=== PATIENT | female | born 1975 | race Caucasian/White ===

== ENCOUNTER 2019-11-01 16:11 | Emergency (ER) | payer OTHER, SELFPAY ==
[2019-11-01 16:20] VITALS: BP 119/70; PULSE 112; RESP 16; TEMP 37.1; O2SAT 100
--- NOTE | 2019-11-01 16:37 | ED.URI ---
HPI - URI/Sore Throat General Chief Complaint: Upper Respiratory Infection Stated Complaint: fever/chills Time Seen by Provider: 11/01/19 16:37 Source: patient and RN notes reviewed Mode of arrival: ambulatory Limitations: no limitations History of Present Illness HPI Narrative: 44-year-old female presents with concern for fever, sore throat, body aches that started this morning at 10:00. Reports exposure to influenza from her daughter. Reports taking Tylenol prior to arrival. Also reports history of strep throat. MD elicited complaint: fever Related Data Home Medications Medication Instructions Recorded Confirmed sertraline 50 mg PO DAILY 11/01/19 11/01/19 Allergies Allergy/AdvReac Type Severity Reaction Status Date / Time amoxicillin Allergy Mild Rash Verified 11/01/19 16:28 pseudoephedrine Allergy Mild Other Verified 11/01/19 16:28 Sulfa (Sulfonamide Allergy Mild Rash Verified 11/01/19 16:28 Antibiotics) clavulanic acid Allergy Rash Verified 11/01/19 16:29 [From Augmentin] Review of Systems Review of Systems: Narrative: CONSTITUTIONAL: Reports malaise, chills, sweats, fever. EYES: Denies visual changes, redness, or discharge. ENT: Reports rhinorrhea, sore throat. Denies congestion, sinus pain, otalgia. CARDIOVASCULAR: Denies chest pain, palpitations, or edema. RESPIRATORY: Reports cough, posterior chest wall pain. Denies dyspnea. GASTROINTESTINAL: Denies abdominal pain, nausea, vomiting, diarrhea SKIN: Denies rash or itching. MUSCULOSKELETAL: Reports myalgia. NEUROLOGIC: Denies headache. All systems reviewed & are unremarkable except as noted in HPI and below PMFSH Comments At time of signature, agree with nursing past medical, surgical, social and family history. There is no relevant family history pertinent to the presenting complaint Exam Narrative: Exam Narrative: GENERAL: Well-appearing, well-nourished, and in no acute distress. HEAD: Normocephalic EYES: PERRLA, conjunctivae clear ENT: Nares clear, turbinates erythematous, clear discharge. Mucous membranes moist. TM pearly sellers with sharp light reflex bilaterally; no tragal tenderness. Oropharynx with mild erythematous without lesions. Tonsils not enlarged and without exudate, no drooling, no hoarseness, no trismus, uvula midline. NECK: Supple. No lymphadenopathy CHEST: Clear to auscultation, breath sounds equal. No wheezing, rhonchi, rales, or stridor. No respiratory distress, speaks in full sentences. HEART: Regular rate and rhythm. No murmur heard. SKIN: Warm, dry, no rash. NEURO: Alert and oriented x3. PSYCH: Normal mood and affect Course Course Emergency Course: Patient is aware of diagnosis, understands and agrees to treatment plan. Anticipatory guidance given. Patient agrees to follow-up as directed and is aware of reasons to seek care at the emergency department. Portions of this record may have been created with voice recognition software Vital Signs Vital signs: Vital Signs Temperature 98.7 F 11/01/19 16:20 Pulse Rate 112 H 11/01/19 16:20 Respiratory Rate 16 11/01/19 16:20 Blood Pressure 119/70 11/01/19 16:20 Pulse Oximetry 100 11/01/19 16:20 Temperature 98.7 F 11/01/19 16:20 Pulse Rate 112 H 11/01/19 16:20 Respiratory Rate 16 11/01/19 16:20 Blood Pressure 119/70 11/01/19 16:20 Pulse Oximetry 100 11/01/19 16:20 Reviewed. MDM - URI/Sore Throat MDM Narrative Medical decision making narrative: Differential diagnosis considered: Strep pharyngitis, allergic rhinitis, upper respiratory tract infection, sinusitis, rhinosinusitis, nasopharyngitis. viral pharyngitis, otitis media, otitis externa, pneumonia, bronchitis, viral cough syndrome, viral syndrome, and influenza. Exam findings show no acute concerns or changes; patient is non-toxic appearing and is in no distress. Patient is appropriate for outpatient treatment and follow-up. Lab Data Attestation: I reviewed the patient's lab results. Cri
== END 2019-11-01 17:00 | disposition home or self-care (01) ==
PROVIDERS: Emergency Provider Nurse Practitioner; PCP Physician Assistant
DX: R50.9 Fever, unspecified (principal); J02.9 Acute pharyngitis, unspecified; R52 Pain, unspecified; I34.1 Nonrheumatic mitral (valve) prolapse
CPT/HCPCS: 87081; 87804; 87880; 99213; G0463

== ENCOUNTER 2024-08-26 15:41 | Outpatient (CLI) | payer OTHER, SELFPAY ==
--- NOTE | ~2024-08-26 | XR_ITS ---
XR hand LT 2V Ordering provider: Levy Batista, PA History: . Elevated rheumatoid factor, Polyarthralgia . Comparison: None. FINDINGS: BONES: No acute fracture or dislocation. JOINT SPACES: Well maintained. SOFT TISSUES: Unremarkable. IMPRESSION: No acute osseous abnormality left hand. Reviewed, dictated and finalized at location A. LE AND HEEL STIFFENER
--- NOTE | ~2024-08-26 | XR_ITS ---
XR foot LT 2V Ordering provider: Levy Batista, PA History: . Elevated rheumatoid factor, Polyarthralgia . Comparison: None. FINDINGS: BONES: No acute fracture or dislocation. JOINT SPACES: Marginal osteophytes seen in the first interphalangeal joint suggestive of osteoarthrit ic changes. No tarsal coalition. SOFT TISSUES: Normal. IMPRESSION: No acute osseous abnormality left foot. Reviewed, dictated and finalized at location A. ICE ORDER DISPATCHER
--- NOTE | ~2024-08-26 | XR_ITS ---
XR foot RT 2V Ordering provider: Levy Batista, PA History: . Elevated rheumatoid factor, Polyarthralgia . Comparison: None. FINDINGS: BONES: No acute fracture or dislocation. Mild hallux valgus. Ossification of the insertion of the ten do Achilles. JOINT SPACES: Normal. No tarsal coalition. Cystic area in the proximal metaphysis of the first toe proximal phalanx most likely degenerative. SOFT TISSUES: Normal. IMPRESSION: No acute osseous abnormality of the right foot. No definite evidence of specific arthritis. Reviewed, dictated and finalized at location A. TIRE TRIMMER
--- NOTE | ~2024-08-26 | XR_ITS ---
XR sacroiliac joints min 3V Ordering provider: Levy Batista, PA History: . Elevated rheumatoid factor, Polyarthralgia . Comparison: None. FINDINGS: BONES: No acute fracture or dislocation. JOINTS: The bilateral sacroiliac joint spaces appear well maintained. No bony fusion of the sacroilia c joints or bony erosions. SOFT TISSUES: Unremarkable. Pubic symphysitis. IMPRESSION: NO ACUTE OSSEOUS ABNORMALITY. NORMAL SACROILIAC JOINTS. Reviewed, dictated and finalized at location A. SCORER
--- NOTE | ~2024-08-26 | XR_ITS ---
XR hand RT 2V Ordering provider: Levy Batista, ASHLEY History: . Elevated rheumatoid factor, Polyarthralgia . Comparison: None. FINDINGS: BONES: No acute fracture or dislocation. Cystic changes in the distal right ulna. JOINT SPACES: Normal. SOFT TISSUES: Normal. IMPRESSION: No acute osseous abnormality right hand. Reviewed, dictated and finalized at location A. IC WELFARE WORKER
== END 2024-08-26 15:42 | disposition home or self-care (01) ==
LOC: MICIMG 15:44
PROVIDERS: PCP Physician Assistant; Visit Provider Physician Assistant
DX: R76.8 Other specified abnormal immunological findings in serum (principal)
CPT/HCPCS: 72202; 73120; 73620

== ENCOUNTER 2025-07-04 15:16 | Outpatient (CLI) | payer OTHER, SELFPAY ==
--- NOTE | ~2025-07-04 | XR_ITS ---
XR thoracic spine 3V Indication: thor back pain, RT flank pain Comparison: None Findings: The vertebral heights are intact. No fracture or subluxation. The disc heights are intact. Soft tissues unremarkable Impression: No acute abnormality. Reviewed, dictated and finalized at location P. L MANAGEMENT ASSOCIATE Impression: No acute abnormality.
--- NOTE | ~2025-07-04 | XR_ITS ---
XR abdomen/kub 1V INDICATION: thor back pain, RT flank pain REFERENCE: NONE FINDINGS: A supine view of the abdomen is submitted. The bowel gas pattern is nonobstructive. No free air is identified. Osseous structures are intact. No renal stone seen. IMPRESSION: Normal KUB. Reviewed, dictated and finalized at location S. LIDDER IMPRESSION: Normal KUB.
--- NOTE | ~2025-07-04 | XR_ITS ---
XR chest 2V HOSTORY: thor back pain, RT flank pain COMPARISON:[ None] FINDINGS: Frontal and lateral views of the chest were obtained. The lungs are clear. The heart size is normal in size. Pulmonary vasculature is unremarkable. Osseous structures are intact. IMPRESSION: No acute lung findings.] [ ] Reviewed, dictated and finalized at location S. GROOVER
== END 2025-07-04 15:17 | disposition home or self-care (01) ==
PROVIDERS: PCP Physician Assistant; Visit Provider Physician Assistant
DX: M54.6 Pain in thoracic spine (principal); R10.A1 Flank pain, right side
CPT/HCPCS: 71046; 72072; 74018

== ENCOUNTER 2025-08-02 08:19 | Outpatient (CLI) | payer OTHER, SELFPAY ==
--- NOTE | ~2025-08-02 | CT_ITS ---
EXAM/PROCEDURE: CT abdomen pelvis wo con HISTORY: Right flank pain COMPARISON: None available. TECHNIQUE: Noncontrast CT abdomen pelvis FINDINGS: No hydroureteronephrosis. No obstructing ureteral stones kidney stones or urinary bladder stones. Nonobstructive bowel gas pattern with no free air free fluid or pneumatosis. Moderate to large amount of stool extending to the cecum. Normal size aorta and appendix. Gallbladder removed. Spleen stomach liver and adrenal glands unremarkable for technique. Bones intact. Anteflex uterus and adnexal regions as well as urinary bladder appear within normal limits for technique. Urachal remnant noted. Minimal bibasilar fibrotic and atelectatic changes in the lungs. Heart size normal with trace pericardial fluid. Stomach unopacified but no gross acute process. No bulky lymphadenopathy or masses. IMPRESSION: Directed noncontrast exam demonstrating no focal acute change to explain patient's symptoms. Moderate to large amount stool and other findings as noted above. Reviewed, dictated and finalized at location A. NG DISORDER SPECIALIST IMPRESSION: Directed noncontrast exam demonstrating no focal acute change to explain patien t's symptoms. Moderate to large amount stool and other findings as noted above.
== END 2025-08-02 08:20 | disposition home or self-care (01) ==
PROVIDERS: PCP Physician Assistant; Visit Provider Physician Assistant
DX: R10.A1 Flank pain, right side (principal)
CPT/HCPCS: 74176